=== PATIENT | male | born 1940 | race Caucasian/White ===

== ENCOUNTER → 2016-06-13 | Outpatient (CLI) | payer MEDICARE | LOC: M LAB 10:50 | PROVIDERS: ATTEND Radiology Radiation Oncology | DX: C61 Malignant neoplasm of prostate (principal) ==

== ENCOUNTER → 2016-06-19 | Outpatient (CLI) | payer MEDICARE | LOC: M ONCR 14:29 | PROVIDERS: ATTEND Radiology Radiation Oncology | DX: C61 Malignant neoplasm of prostate (principal) ==

== ENCOUNTER → 2016-06-21 | Outpatient (REF) | payer MEDICARE | LOC: M LAB REF 16:25 | DX: G62.9 Polyneuropathy, unspecified (principal) ==